=== PATIENT | female | born 1955 | race Caucasian/White ===

== ENCOUNTER 2022-02-19 13:48 | Outpatient (RCR) | payer MEDICARE, BC, SELFPAY | END 2022-08-18 23:59 | disposition home or self-care (01) | LOC: CCIC 13:48 | PROVIDERS: PCP Nurse Practitioner; Visit Provider Nurse Practitioner Family | DX: C50.912 Malignant neoplasm of unspecified site of left female breast (principal); Z17.0 Estrogen receptor positive status [ER+]; Z79.811 Long term (current) use of aromatase inhibitors | CPT/HCPCS: 99212; 99214 ==

== ENCOUNTER 2022-04-22 14:30 | Outpatient (CLI) | payer MEDICARE, BC, SELFPAY ==
--- NOTE | 2022-04-22 14:40 | CRLHL7_ITS ---
For Patients: As a result of the Century Cures Act, medical imaging exams and procedure reports are released immediately into your electronic medical record. You may view this report before your referring provider. If you have questions, please contact your health care provider. BILATERAL SCREENING MAMMOGRAM WITH COMPUTER-AIDED DETECTION AND TOMOSYNTHESIS CLINICAL HISTORY: 67-year-old female. Personal history of LEFT-sided breast cancer. LEFT lumpectomy. TECHNIQUE: CC and MLO views were obtained. This digital study was evaluated with the assistance of computer-aided detection. Digital breast tomosynthesis utilized in interpretation. COMPARISON: 01/06/2019, 02/28/2020, 2020, as well as dedicated views of the LEFT breast 04/25/2021 and 04/28/2021. BREAST COMPOSITION: The breasts are heterogeneously dense, which may obscure small masses FINDINGS: There are postsurgical changes from a LEFT breast lumpectomy with benign coarse calcifications. Within the inferomedial RIGHT breast, there is an enlarging oval-shaped nodule, well circumscribed measuring approximately 5-6 mm. Spot compression views in the CC and true ML projection are recommended as a 1st step. Ultrasound may be required depending on the results of these additional images. IMPRESSION: 1. Postsurgical/posttreatment change LEFT breast. 2. Enlarging fairly well-circumscribed oval-shaped nodule inferomedial RIGHT breast for which additional imaging is recommended. The [facility] will contact the patient for follow-up. BI-RADS Category 0: Incomplete: Need Additional Imaging Evaluation and/or Prior Mammograms for Comparison Dictated by: Micky Falcon MD @04/23/2022 8:22:14 AM PT/Dictated by: Micky Falcon MD @ 04/23/2022 8:22:00 AM (Electronically Signed)
== END 2022-04-22 14:31 | disposition home or self-care (01) ==
PROVIDERS: PCP Nurse Practitioner; Visit Provider Nurse Practitioner
DX: Z12.31 Encounter for screening mammogram for malignant neoplasm of breast (principal); N63.10 Unspecified lump in the right breast, unspecified quadrant
CPT/HCPCS: 77063; 77067

== ENCOUNTER 2022-04-27 09:28 | Outpatient (CLI) | payer MEDICARE, BC, SELFPAY ==
--- NOTE | 2022-04-27 09:45 | CRLHL7_ITS ---
For Patients: As a result of the Cures Act, medical imaging exams and procedure reports are released immediately into your electronic medical record. You may view this report before your referring provider. If you have questions, please contact your health care provider. RIGHT DIAGNOSTIC DIGITAL MAMMOGRAM WITH COMPUTER-AIDED DETECTION AND TOMOSYNTHESIS RIGHT BREAST ULTRASOUND CLINICAL HISTORY: RIGHT breast mass/asymmetry. COMPARISON: 04/22/2022. TECHNIQUE: Digital RIGHT mammogram in two projections with computer-aided detection and tomosynthesis. Real-time ultrasound imaging of RIGHT breast with imaging documentation. BREAST COMPOSITION: The breast is heterogeneously dense, which may obscure small masses. FINDINGS: 3D spot compression CC and 3D true lateral RIGHT breast mammogram images are submitted. Persistent nodular density inferior RIGHT breast without architectural distortion. Targeted RIGHT breast ultrasound performed at 6 o`clock 4 cm from the nipple. In this location, there is a hypoechoic nodule without increased through-transmission measuring 4 x 3 x 5 mm. IMPRESSION: Indeterminate hypoechoic nodule at 6 o`clock of the RIGHT breast, 4 cm from the nipple measuring 4 x 3 x 5 mm. RECOMMENDATIONS: Ultrasound-guided core needle biopsy. Results and recommendations discussed with the patient. A lay language report of this examination will be provided to the patient. BI-RADS Category 4. Suspicious Dictated by Yong Jain MD @ 04/27/2022 10:51:16 AM CRL:[email or web address] RD/Dictated by: Yong Jain MD @ 04/27/2022 10:51:[address]/Dictated by: Yong Jain MD @ 04/27/2022 10:51:00 AM (Electronically Signed)
--- NOTE | 2022-04-27 10:15 | CRLHL7_ITS ---
For Patients: As a result of the Cures Act, medical imaging exams and procedure reports are released immediately into your electronic medical record. You may view this report before your referring provider. If you have questions, please contact your health care provider. PLEASE SEE RIGHT DIAGNOSTIC MAMMOGRAM OF SAME DAY FOR COMBINED REPORT. [email or web address]:[email or web address] RD/Dictated by: Yong Jain MD @ 04/27/2022 10:51:00 AM (Electronically Signed)
== END 2022-04-27 09:29 | disposition home or self-care (01) ==
LOC: MAMMO 09:29
PROVIDERS: PCP Nurse Practitioner; Visit Provider Nurse Practitioner Family
DX: N63.10 Unspecified lump in the right breast, unspecified quadrant (principal); R92.8 Other abnormal and inconclusive findings on diagnostic imaging of breast
CPT/HCPCS: 76642; 77065; G0279

== ENCOUNTER 2022-04-29 09:19 | Outpatient (CLI) | payer MEDICARE, BC, SELFPAY ==
--- NOTE | 2022-04-29 10:15 | CRLHL7_ITS ---
For Patients: As a result of the Century Cures Act, medical imaging exams and procedure reports are released immediately into your electronic medical record. You may view this report before your referring provider. If you have questions, please contact your health care provider. ULTRASOUND-GUIDED RIGHT BREAST BIOPSY AND POST-BIOPSY DIGITAL MAMMOGRAM FOR BIOPSY MARKER PLACEMENT CLINICAL HISTORY: Indeterminate hypoechoic lesion. COMPARISON STUDIES: Mammogram and ultrasound 04/27/2022. TECHNIQUE: Real-time ultrasound with image documentation was used for targeting the breast lesion. Core biopsy specimens were obtained using an automated gun with an 18-gauge biopsy needle. Post-biopsy CC and ML digital mammograms were obtained to document position of the biopsy marker. CONSENT and TIME OUT: The procedure, risks, and alternatives were explained to the patient and a consent was signed. [place] Protocol was followed including pre-procedure verification that relevant information/documentation was available, reviewed and properly matched to the patient; consent accurate and complete; and equipment and supplies available. Time Out was conducted just prior to starting procedure to verify the four required elements: patient identity, correct side/site marked (if applicable), procedure, relevant images/results properly labeled and displayed (if applicable). PROCEDURE: The patient was positioned supine on the ultrasound table. The breast was prepped with ChloraPrep. 8 cc of 1% lidocaine used for local anesthesia. Core samples were obtained. A sterile metal biopsy clip was placed percutaneously to margot the lesion position within the breast. The specimens were placed in 10% formalin and sent to the pathology department. Pressure was held on the biopsy site until all bleeding subsided. The skin incision was closed with Steri-Strips. An ice pack was positioned over the biopsy site. Post-biopsy instructions were reviewed with the patient, and a written copy was given to her. LATERALITY: RIGHT breast. LESION: Hypoechoic solid nodule measuring 4 x 3 x 5 mm at 6 o`clock, 4 cm from the nipple. SUSPICION FOR MALIGNANCY: Low NUMBER OF SAMPLES: 5 BIOPSY CLIP SHAPE: Oval PROXIMITY OF CLIP TO TARGET: Within the lesion. IMPRESSION: Ultrasound-guided RIGHT breast biopsy. When the pathology report is available, an addendum to this report will be made. ACR not applicable. A lay language report of this examination will be provided to the patient. 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 No evidence of atypia or malignancy. This is concordant. Resume routine screening mammography. Dictated by Yong Jain MD @ Apr 29 2022 12:49PM Signed by:?Yong Jain MD @04/29/2022 2:00:10 PM (Electronically Signed)
--- NOTE | 2022-04-29 11:00 | CRLHL7_ITS ---
For Patients: As a result of the Century Cures Act, medical imaging exams and procedure reports are released immediately into your electronic medical record. You may view this report before your referring provider. If you have questions, please contact your health care provider. PLEASE SEE RIGHT BREAST ULTRASOUND-GUIDED BIOPSY OF SAME DAY. CRL:[email or web address] RD/Dictated by: Yong Jain MD @ 04/29/2022 12:49:00 PM (Electronically Signed)
== END 2022-04-29 09:20 | disposition home or self-care (01) ==
PROVIDERS: PCP Nurse Practitioner; Visit Provider Nurse Practitioner Family
DX: N63.10 Unspecified lump in the right breast, unspecified quadrant (principal); R92.8 Other abnormal and inconclusive findings on diagnostic imaging of breast
CPT/HCPCS: 19083; 77065; 88305; A4648; A4649

== ENCOUNTER 2022-10-07 15:13 | Outpatient (CLI) | payer MEDICARE, BC, SELFPAY ==
--- NOTE | 2022-10-07 15:30 | CRLHL7_ITS ---
For Patients: As a result of the Century Cures Act, medical imaging exams and procedure reports are released immediately into your electronic medical record. You may view this report before your referring provider. If you have questions, please contact your health care provider. DXA BONE MINERAL DENSITY STUDY Reason for exam: Osteopenia. Current height (in): 67. Weight (lb): 160. Menopause age: 49. Ethnicity: White. 1. Have you had a previous hip or vertebral fracture? No. 2. Have you had any fractures during your adult life which did not result from significant trauma (e.g., auto accident)? No. 3. Did either of your parents have a hip fracture? No. 4. Do you smoke? No. 5. Have you ever taken Glucocorticoids? No. 6. Do you have rheumatoid arthritis? No. 7. Do you have secondary osteoporosis? No. 8. Do you drink 3 or more alcoholic drinks per day? No. 9. Are you being treated for osteoporosis? No. 10. Have you ever taken any of the following medications: Actonel, Evista, Fosamax, Miacalcin, Reclast, Boniva, Forteo, HRT (i.e., estrogen/hormone therapy), Protelos, Prolia, Vitamin D, Calcium, other ??? please specify. ANSWER: Yes, vitamin D and calcium. 11. Do you have any of the following medical conditions: Anorexia or bulimia, asthma or emphysema, end stage renal disease, hyperparathyroidism, any seizure disorders, cancer, inflammatory bowel diseases, hysterectomy, other ??? please specify. ANSWER: No. 12. What was your maximum height (inches)? 67. 13. Do you perform weight bearing exercise regularly? Yes. 14. Do you regularly consume dairy products? Yes. 15. Do you drink caffeinated beverages? No. If female: 16. At what age did your period start? 12. 17. Are you premenopausal? No. 18. How many full-term pregnancies have you had? 2. 19. Have you ever missed your period for more than 6 months in a row (not including or menopause)? No. TECHNIQUE: Bone mineral density study was performed using the [employer]. FINDINGS: The results of the study expressed as bone mineral density (BMD) are as follows: Lumbar spine L1 to L4: BMD: 0.830 g/cm2. T-score: -2.0. Z-score: 0.0 Neck Left: BMD: 0.663 g/cm2. T-score: -1.7. Z-score: 0.0 Right: BMD: 0.640 g/cm2. T-score: -1.9. Z-score: -0.2 Total Left: BMD: 0.774 g/cm2. T-score: -1.4. Z-score: 0.0. Right: BMD: 0.766 g/cm2. T-score: -1.4. Z-score: 0.0. IMPRESSION: Osteopenia. FRAX 10-year Fracture Risk Major Osteoporotic Fracture: 11% Hip Fracture: 1.7% Reported Risk Factors: [place] () Neck BMD=0.640, BMI= 25.1 Yong Jain M.D. Diagnostic Radiologist [email or web address] [email or web address] nevarez/Dictated by: Yong Jain MD @ 10/08/2022 10:38:00 AM (Electronically Signed)
== END 2022-10-07 15:14 | disposition home or self-care (01) ==
LOC: RAD 15:14
PROVIDERS: PCP Nurse Practitioner; Visit Provider Nurse Practitioner Family
DX: M85.80 Other specified disorders of bone density and structure, unspecified site (principal); C50.919 Malignant neoplasm of unspecified site of unspecified female breast; Z79.811 Long term (current) use of aromatase inhibitors
CPT/HCPCS: 77080

== ENCOUNTER 2022-10-12 14:07 | Outpatient (RCR) | payer MEDICARE, BC, SELFPAY ==
--- NOTE | 2022-10-12 15:14 | ONC.NURNOTE ---
I accompanied patient to her oncology visit. Printed information given to patient re: Zometa and Prolia. Patient was also provided a dental clearance form. At this time she is not interested in bisphosphonate treatment but is open to discuss it again at her next visit. She will have her dentist complete the form so that we have it on file.
== END 2023-04-10 23:59 | disposition home or self-care (01) ==
LOC: CCIC 14:07
PROVIDERS: Visit Provider Internal Medicine Hematology & Oncology
DX: C50.912 Malignant neoplasm of unspecified site of left female breast (principal); Z17.0 Estrogen receptor positive status [ER+]; Z79.811 Long term (current) use of aromatase inhibitors; M85.80 Other specified disorders of bone density and structure, unspecified site
CPT/HCPCS: 99212; 99214

== ENCOUNTER 2023-04-30 13:45 | Outpatient (CLI) | payer MEDICARE, BC, SELFPAY ==
--- NOTE | 2023-04-30 14:00 | CRLHL7_ITS ---
For Patients: As a result of the Century Cures Act, medical imaging exams and procedure reports are released immediately into your electronic medical record. You may view this report before your referring provider. If you have questions, please contact your health care provider. BILATERAL SCREENING MAMMOGRAM WITH COMPUTER-AIDED DETECTION AND TOMOSYNTHESIS TECHNIQUE: CC and MLO views were obtained. These mammographic images have been obtained using full-field digital technique. These mammographic images were interpreted with the benefit of computer-aided detection. Breast Tomosynthesis was used in this interpretation. COMPARISON FILM: 04/22/22, 04/21/21, 02/28/20. FINDINGS: There are scattered areas of fibroglandular density IMPRESSION: There is no radiographic evidence for malignancy. ASSESSMENT: BI-RADS Category 2: Benign RECOMMENDATION: Routine screening mammogram in 1 year. A lay language report of this examination will be provided to the patient. Micky Falcon M.D. Diagnostic/Nuclear Medicine Radiologist [email or web address] SHILOH/Dictated by: Micky Falcon MD @ 05/03/2023 8:24:00 AM (Electronically Signed)
== END 2023-04-30 13:46 | disposition home or self-care (01) ==
LOC: MAMMO 13:47
PROVIDERS: PCP Family Medicine; Visit Provider Internal Medicine Hematology & Oncology
DX: Z12.31 Encounter for screening mammogram for malignant neoplasm of breast (principal)
CPT/HCPCS: 77063; 77067

== ENCOUNTER 2023-10-28 14:45 | Outpatient (RCR) | payer MEDICARE, BC, SELFPAY | END 2023-11-01 23:59 | disposition home or self-care (01) | LOC: CCIC 14:45 | PROVIDERS: PCP Family Medicine; Visit Provider Physician Assistant | DX: C50.912 Malignant neoplasm of unspecified site of left female breast (principal); Z17.0 Estrogen receptor positive status [ER+]; Z79.811 Long term (current) use of aromatase inhibitors; M85.80 Other specified disorders of bone density and structure, unspecified site | CPT/HCPCS: 99212; 99213; 99214; G0463 ==

== ENCOUNTER 2024-05-01 12:47 | Outpatient (CLI) | payer MEDICARE, BC, SELFPAY ==
--- OUTSIDE RECORDS SUMMARY | 2024-05-01 12:50 | XMS_ITS ---
Author Organization [facility] Address [address] [place] [address] Care Team Providers Care Plane Tableman Name Role Phone Unavailable Unavailable Unavailable Surgery Details Not on file Complications Check Surgery Details section. Procedure Estimated Blood Loss Check Surgery Details section. Procedure Findings Check Surgery Details section. Procedure Specimens Taken Check Surgery Details section.
--- OUTSIDE RECORDS SUMMARY | 2024-05-01 12:50 | XMS_ITS | Referral Summary ---
Author Organization [facility] Address [address] [place] [address] Care Team Providers Care Telecommunications Administrator Name Role Phone Dirk Pathak M.D. Primary Care Provider [phone] Source Comments Patient records contain information from all sites at [facility]. For routine questions regarding patient records, call [phone] during business hours, M-F 8:00 AM - 5:00 PM Central Time. Record requests for emergency care only can be directed to [phone] at any time.[facility] Encounters Date Type Department Care Team Description 04/21/2024 Orders Only Department of Internal Medicine in [place], [place] [address] [place] [id number] Aruna Vizcarra, HELLEN, C.N.P., D.N.P., M.S.N. Obstructive Sleep Apnea Adult (Primary Dx) 03/16/2024 Refill Department of Family Medicine, [facility], in [place], [place] [address] [place] [phone] Dirk Pathak M.D. Med Refill from Last 3 Months Allergies Active Allergy Reactions Criticality Noted Date Comments Latex Rash 10/10/2018 Tetracycline Rash 12/24/2009 Medications * This document contains information received from the source organization and may not represent a complete record from that organization. CLOBETASOL PROPIONATE (CLOBETASOL TOP) Apply 1 application topically 2 (two) times a day as needed. 2 Active desonide (DESOWEN) 0.05 % lotion Apply 1 application topically 2 (two) times a day as needed for irritation or itching. 4 Active FLAXSEED ORAL Take by mouth daily. 0 Active FLUOCINOLONE ACETONIDE (FLUOCINOLONE TOP) fluocinolone 0.01% topical oil See Instructions, 1 jyotsna at bedtime- wear shower cap to bed. May use for 2 weeks straight then PRN., 118 mL 4 Active MULTIVITAMIN WITH MINERALS ORAL Take 1 capsule by mouth daily. 3 Active calcium carbonate-vitam in D3 1,500 mg (600 mg calcium)-10 mcg (400 Unit) per tablet Take 1 tablet by mouth daily. Active acetaminophen (TYLENOL) 325 mg tablet Take 650 mg by mouth. 1 Active ibuprofen (ADVIL,MOTRIN) 600 mg tablet Take 600 mg by mouth. 1 Active anastrozole (ARIMIDEX) 1 mg tablet Take 1 mg by mouth daily. 2 Active atorvastatin (Lipitor) 20 mg tablet Take 1 tablet by mouth once daily 90 tablet 3 4 Active PARoxetine (PaxiL) 10 mg tabletIndicatio ns:Anxiety Take 1/2 (one-half) tablet by mouth once daily 45 tablet 3 4 Active Active Problems Problem Noted Date Diagnosed Date Cancer Breast Personal History 06/18/2021 Cancer Staging:Pathologic stage from 06/02/2021:Stage IA(pT1b, pN0(sn), cM0, G1, ER+, MS+, HER2-) - Unsigned Osteopenia 09/26/2020 Overview (09/26/2020): September 25, 2020 BONE DENSITY EXAM IMPRESSION: Osteopenia on Neck Right Total Hip: T-score = -1.3 Femur Neck: BMD = T-score = -1.6 Obstructive Sleep Apnea Adult 12/02/2018 Overview (04/29/2020): Mild to moderately severe position dependent obstructive sleep apnea by polysomnogram on November 06, 2018, has been utilizing CPAP intervention since that time. 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 Female Left 06/23/2021 10/12/2023 Immunizations Name Administration Dates Next Due HepA Adult 11/22/2001,05/10/2001 HepB (discontinued) adolesce nt/high risk 11/22/2001,05/10/2001,06/13/2000 Influenza TIV (IM) 03/23/2013,04/04/2010, 008 Influenza high dose QV(65 ye ars or older) (PF) 04/02/2023,04/29/2020 Influenza, Seasonal, Injectable 03/23/20 13,03/14/2012,04/04/2010,2007,04/09/2007 Influenza, Unspecified 04/18/2015,2011,03/31/2011,2009 PCV20 02/16/2022 PPSV23 04/29/2020 SARS-COV-2 (COVID-19) - MODE RNA (12 YEARS AND OLDER) Fall Seasonal 04/02/2023 Td (Adult), adsorbed 10/03/2007 Tdap 09/25/2014 influenza vaccine quad (FLUZONE/FLUARIX) (6 months and older)(PF) 03/20/2019,03/31/2018,03/19/2017,2015 typhoid vaccine, parenteral (discontinued) 05/10/2001 Social History Tobacco Use Types Packs/Day Years Used Date Smoking Tobacco: Never Smokeless Tobacco: Never Tobacco Cessation:Counseling Given: Not Answered Alcohol Use Standard Drinks/Week Comments No 0 (1 standard drink = 0.6 oz pur e alcohol) Humiliation, Afraid, Rape, and Kick questionnair e Answer Date Recorded Within the last year, have y ou been afraid of your partner or ex-partner? No 02/16/2022 Within the last year, have y ou been humiliated or emotionally abused in other ways by your partner or ex-partner? No Within the last year, have y ou been kicked, hit, slapped, or otherwise physically hurt by your partner or ex-partner? No 02/16/2022 Within the last year, have y ou been raped or forced to have any kind of sexual activity by your partner or ex-partner? No 02/16/2022 Social Connection and Isolat ion Panel [NHANES] Answer Date Recorded In a typical week, how many times do you talk on the phone with family, friends, or neighbors? More than three times a week 02/16/2022 How often do you get togethe r with friends or relatives? Once a week 02/16/2022 How often do you attend chur or mandaeism services? More than 4 times per year 02/16/2022 Do you belong to any clubs o r organizations such as episcopal groups, unions, fraternal or athletic groups, or school groups? No 02/16/2022 How often do you attend meet ings of the clubs or organizations you belong to? Never 02/16/2022 Are you , , di vorced, , never , or living with a partner? 02/16/2022 AUDIT-C Answer Date Recorded Q1: How often do you have a drink containing alc ohol? Monthly or less 02/16/2022 Q2: How many drinks containi ng alcohol do you have on a typical day when you are drinking? 1 or 2 02/16/2022 Q3: How often do you have si x or more drinks on one occasion? Never 02/16/2022 Overall Financial Resource Strain (CARDIA) Answe r Date Recorded How hard is it for you to pa y for the very basics like food, housing, medical care, and heating? Not hard at all 04/08/2023 PHQ-2 Answer Date Recorded PHQ-2 Score 0 10/12/2023 [facility] - Occupational Stress Questionnaire Answer Date Recorded Do you feel stress - tense, restless, nervous, or anxious, or unable to sleep at night because your mind is troubled all the time - these days? Only a little 02/16/2022 Exercise Vital Sign Answer Date Recorde d On average, how many days pe r week do you engage in moderate to strenuous exercise (like a brisk walk)? 4 days 04/08/2023 On average, how many minutes do you engage in exercise at this level? 30 min 04/08/2023 Hunger Vital Sign Answer Date Recorded Within the past 12 months, y ou worried that your food would run out before you got the money to buy more. Never true 04/08/20 23 Within the past 12 months, t he food you bought just didn't last and you didn't have money to get more. Never true 04/08/2023 PRAPARE - Transportation Answer Date Re corded In the past 12 months, has l ack of transportation kept you from medical appointments or from getting medications? No 07/2022 In the past 12 months, has l ack of transportation kept you from meetings, work, or from getting things needed for daily living? No 04/08/2023 Depression Answer Date Recor ded PHQ-9 Total Score (max 27) 2 04/08 Nutrition Answer Date Recorded On average, how many serving s of fruits and vegetables do you eat per day (serving size is equal to 1 cup or approximately the size of a tennis ball)? 3-5 04/08/2023 Dental Answer Date Recorded Dental: Regular Dentist Yes 05/06/20 Employment Answer Date Recorded Employment status Retired 04/08/2023 Housing Stability Answer Date Recorded What is your living situation today? [facility] to live 04/08/2023 Education Answer Date Recorded What is the highest level of school you have completed or the highest degree you have received? Bachelor's degree (e.g., BA, AB, BS) 02/17/2019 Comments No Sex and Gender Information Value Date Recorded Sex Assigned at Female 04/19/2018 7:41 PM RN URGENT CARE Legal Sex Female 10:56 AM RN URGENT CARE Gender Identity Female 04/19/2018 7:41 PM RN URGENT CARE Sexual Orientation Straight 04/19/2018 7: 41 PM RN URGENT CARE Last Filed Vital Signs Vital Sign Reading Time Taken Comments Blood Pressure 138/82 10/12/2023 7:42 AM CDT Pulse 94 10/12/2023 7:42 AM CDT Temperature 36.1 C (97 F) 10/12/2023 7:42 AM CDT Respiratory Rate 16 10/12/2023 7:42 AM CDT Oxygen Saturation 98% 02/20/2020 11: 21 AM CDT Inhaled Oxygen Concentration - - Weight 72.5 kg (159 lb 13.3 oz) 10/12/2023 7:42 AM CDT Height 171 cm (5' 7.32) 10/12/2023 7:42 AM CDT Body Mass Index 24.79 10/12/2023 7:42 AM CDT Plan of Treatment Not on file Procedures Procedure Name Priority Date/Time Associated Diagnosis Comments HEMOGLOBIN A1C, B Routine 04/05/2023 8:4 0 AM CDT Screening Test Laboratory LIPID PANEL, S Routine 04/05/2023 8:40 AM CDT Hyperlipidemia OUTSIDE MG MAMMOGRAM Routine 04/28/2021 10:45 AM RN URGENT CARE PATHOLOGY STICK FEEDER CYTOLOGY Routine 04/06/2017 12:00 AM CDT from Last 3 Months or Most Recently Relevant to Health Maintenance Results * (ABNORMAL) Lipid Panel (04/05/2023 8:40 AM CDT) Triglycerides 98 mg/dL 04/05/2023 12:46 PM CDT [facility] Comment: ----REFERENCE VALUE---- Normal: <150 mg/dL Borderline High: 150-199 mg/dL High: 200-499 mg/dL Very High: > or =500 mg/dL Cholesterol, Total 145 mg/dL 2022 12:46 PM CDT [facility] Comment: ----REFERENCE VALUE---- Desirable: < 200 mg/dL Borderline High: 200 - 239 mg/dL High: > or = 240 mg/dL Cholesterol, LDL, Calculated 85 mg/dL 04/05/2023 12:46 PM CDT [facility] Comment: ----REFERENCE VALUE---- Desirable: <100 mg/dL Above Desirable: 100-129 mg/dL Borderline High: 130-159 mg/dL High: 160-189 mg/dL Very High: >=190 mg/dL ----ADDITIONAL INFORMATION---- LDL cholesterol calculated using the Cavazos/NIH equation. Cholesterol, HDL 42(L) >=50 mg/dL 04/05/20 12:46 PM CDT [facility] Cholesterol, Non-HDL, Calculated 103 mg/dL 04/05/2023 12:46 PM CDT [facility] Comment: ----REFERENCE VALUE---- Desirable: <130 mg/dL Above Desirable: 130-159 mg/dL Borderline High: 160-189 mg/dL High: 190-219 mg/dL Very High: > or =220 mg/dL Fasting (8 HR or more) Yes 04/05/2023 11:11 AM CDT [facility] Blood (Blood, Venous) 04/05/2023 8:40 AM CDT 04/05/2023 11:11 AM CDT us Shelli Mcqueen P.A.-C. LAB BLOOD ADD-ON Final Res ult Performing Organization Address [facility] Co de Phone Number [facility] [address] [place] [address], [facility] in [place] [address], [place] [address] * (ABNORMAL) Hemoglobin A1c (04/05/2023 8:40 AM CDT) Hemoglobin A1c, B 5.8(H) 4.2 - 5.6 % 04/05/2023 11:57 AM CDT [facility] Comment: Hemoglobin A1c values of 5.7-6.4 percent indicate an increased risk for developing diabetes mellitus. In diabetic patients, HbA1c goals should be discussed with healthcare provider. Blood (Blood, Venous) 04/05/2023 8:40 AM CDT 04/05/2023 11:08 AM CDT us Dirk Pathak M.D. LAB BLOOD ADD-ON Final Resul t Performing Organization Address [facility]/ZIP Co de Phone Number [facility] [address] [place] [address], [facility] [place] [address], [place] [address] * DIAGNOSTIC MAMMO, LEFT, W/CAD-Outside Mammogram (04/28/2021 10:45 AM RN URGENT CARE) Narrative IIMS - 05/06/2021 5:48 PM RN URGENT CARE This order has been created and auto-finalized to support the import of outside images. If available, original interpretation can be found on the Media Tab in Chart Review, in Document Viewer, or as an image in QREADS. If a re-interpretation or overread is required please follow defined workflow. us Provider Not In System IMG BI PROCEDURES Final R esult IIVT NA * Pathology STICK FEEDER Cytology (04/06/2017 12:00 AM CDT) 04/06/2017 Narrative [facility] - 04/09/2017 10:52 AM CDT [facility] in [address] [place] [address] Patient Name: JYOTI RINCON Collected: 04/06/2017 Address: [facility]/State/Zip: [address] [place] [id number] Received: Reported: 04/07/2017 04/09/2017 Soc. Sec. #: /Age/Sex 1955 (Age: 61) F Physician(s): LAMBERTO SANDERSON MD Copy To: [facility] [id number] [address] [place] [id number] CYTOPATHOLOGY STICK FEEDER REPORT FINAL CYTOLOGIC DIAGNOSIS Pap Smear - ThinPrep with HPV: NEGATIVE FOR INTRAEPITHELIAL LESION OR MALIGNANCY PRESENCE OR ABSENCE OF ENDOCERVICAL COMPONENT CANNOT BE DETERMINED DUE TO ATROPHY. SATISFACTORY SPECIMEN FOR EVALUATION. Electronically Signed Out By eh/04/09/[address](ASCP) The Pap test is a screening procedure and, as such, is subject to both false positive and false negative results as evidenced by published data. It is not a diagnostic test and results should be interpreted in the context of the patient's history and other clinical findings. Obtaining periodic Pap tests may help to minimize the consequences of any false negatives that may occur. Procedures/Addenda: HUMAN PAPILLOMA VIRUS ADDENDUM Date Ordered: 04/07/2017 Status: Signed Out Date Complete: 04/09/2017 By: AJ Wawrzynaik CT(ASCP) Date Reported: 04/09/2017 INTERPRETATION: Test: Aptima High Risk HPV Result: NEGATIVE FOR HIGH RISK HPV Specimen Description: ThinPrep Pap Test PreservCyt Solution HPV by Sock Knitter-Mediated Amplification (TMA) for E6/E7 viral messenger RNA (mRNA) is an in-vitro diagnostic test for the detection of 14 high-risk Human Papillomavirus (HPV) types (16, 18, 31, 33, 35, 39, 45, 51, 52, 56, 58, 59, 66, and 68) in cervical specimen. Intended for co-testing or reflex testing of ASC-US Pap smears. Interpretation for patients with ASC-US cytology: Low likelihood of underlying high-grade CIN2-3 or cancer; results are not intended to prevent women from proceeding to colposcopy. Interpretation for patients with NILM cytology who are over 30 years old: Very low likelihood of underlying high-grade ANKIT or cancer; results do not preclude future HPV infection or cytologic abnormalities with underlying CIN2-3 or cancer. SPECIMEN(S) RECEIVED: Pap Smear - ThinPrep with HPV CLINICAL HISTORY: Menstrual History: Postmenopausal Hormonal History: No hormonal therapy Other Clinical Conditions: HPV TYPING REQUESTED Merle Dykes M.D. 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 [address] [place] [phone] PCP - General 06/11/22 [facility] 04/08/23
--- OUTSIDE RECORDS SUMMARY | 2024-05-01 12:50 | XMS_ITS ---
Author Organization [facility] Address [address] [place] [address] Care Team Providers Care Director Of Culture Name Role Phone Dirk Pathak M.D. Primary Care Provider Active Problems * This document contains information received from the source organization and may not represent a complete record from that organization. Problem Noted Date Diagnosed Date Cancer Breast Personal History 06/18/2021 Cancer Staging:Pathologic stage from 06/02/2021:Stage IA(pT1b, pN0(sn), cM0, G1, ER+, NC+, HER2-) - Unsigned Osteopenia 09/26/2020 Overview (09/26/2020): [...] time. Hyperlipidemia 04/20/2018 Anxiety 04/20/2018 Psoriasis 04/20/2018 Current Oncology Plans No current plan information found. Past Plans No past plan information found. Radiation Treatments * Plan Last Treated On Elapsed Days Fractions Treated Prescribed Fraction Dose Prescribed Total Dose [id number] 08/01/2021 4 5 of 5 520 cGy 2,600 cGy Reference Point Last Treated On Elapsed Days Session Dose Total Dose [id number] 08/01/2021 4 520 cGy 2,600 cGy Resolved Problems Problem Noted Date Diagnosed Date Resolved Date Malignant Neoplasm Of Breast Upper Inner Quadrant Female Left 06/23/2021 10/12/2023
--- OUTSIDE RECORDS SUMMARY | 2024-05-01 12:50 | XMS_ITS | Clinical Summary ---
Author Organization [facility] Address [address] [place] [address] Care Team Providers Care Meat Manager Name Role Phone Dirk Pathak M.D. Primary Care Provider Source Comments Patient records contain information from all sites at [facility]. For routine questions regarding patient records, call [phone] during business hours, M-F 8:00 AM - 5:00 PM Central Time. Record requests for emergency care only can be directed to [phone] at any time.[facility] Allergies Active Allergy Reactions Criticality Noted Date [...] from 06/02/2021:Stage IA(pT1b, pN0(sn), cM0, G1, ER+, MA+, HER2-) - Unsigned Osteopenia 09/26/2020 Overview (09/26/2020): [...] Upper Inner Quadrant Female Left 06/23/2021 10/12/2023 Encounters Date Type Department Care Team Description 04/21/2024 Orders Only Department of Internal Medicine in [place], [place] [address] [place] [phone] Aruna Vizcarra APRN, C.N.P., D.N.P., M.S.N. Obstructive Sleep Apnea Adult (Primary Dx) 03/16/2024 Refill Department of Family Medicine, [facility], in [place], [place] [address] [place] [address] Dirk Pathak M.D. Med Refill from Last 3 Months Immunizations Name Administration Dates Next Due HepA [...] older)(PF) 03/20/2019,03/31/2018,03/19/2017,2015 typhoid vaccine, parenteral (discontinued) 05/10/2001 Family History Medical History Relation Name Comments Crohn's disease Brother 1 sima Skin cancer Brother 1 sima Anxiety disorder Brother 2 jefff Hyperlipidemia Brother 2 jefff Psoriasis Brother 2 jefff Eating disorder Daughter Dahlia pre-cancerous skin cells Daughter Dahlia Alcohol abuse Father Taqueria Anxiety disorder Father Taqueria Parkinsons disease Father Taqueria Diabetes Maternal Grandmother Diabetes Mother Polly Gout Mother Polly Hyperlipidemia Mother Polly Hypertension Mother Polly Breast cancer Sister 1 alejandra Gout Sister 1 alejandra Hyperlipidemia Sister 1 alejandra Hypertension Sister 1 alejandra Skin cancer Sister 1 alejandra Breast cancer Sister 2 rosemarie Hyperlipidemia Sister 2 rosemarie Schizophrenia Sister 2 rosemarie Testicular cancer Son Cuauhtemoc Relation Name Status Comments Brother 1 sima Alive Brother 2 jefff Alive Daughter Dahlia Alive Father Taqueria (Age 88) Complicati ons of pneumonia Maternal Grandfather Maternal Grandmother Mother Polly (Age 76) Paternal Grandfather Paternal Grandmother Sister 1 alejandra Alive Sister 2 rosemarie Alive Son Cuauhtemoc Alive Social History Tobacco Use Types Packs/Day Years [...] week 02/16/2022 How often do you attend [facility] or restoration services? More than 4 times per year 02/16/2022 Do you belong to any clubs o r organizations such as presybeterian groups, unions, fraternal or athletic groups, or [...] Answer Date Recorded PHQ-2 Score 0 10/12/2023 [facility] - Occupational Stress [...] Date Recorded Dental: Regular Dentist Yes 05/06/20 21 Employment Answer Date Recorded Employment status Retired 04/08/2023 Housing Stability Answer Date Recorded What is your living situation today? I have a [facility] place to live 04/08/2023 Education Answer Date Recorded What is the highest level of school you have completed or the highest degree you have received? Bachelor's degree (e.g., BA, AB, BS) 02/17/2019 Comments No Sex and Gender Information Value Date Recorded Sex Assigned at Female 04/19/2018 7:41 PM IN SHOP SERVICE TECHNICIAN Legal Sex Female 10:56 AM IN SHOP SERVICE TECHNICIAN Gender Identity Female 04/19/2018 7:41 PM IN SHOP SERVICE TECHNICIAN Sexual Orientation Straight 04/19/2018 7: 41 PM IN SHOP SERVICE TECHNICIAN Last Filed Vital Signs Vital Sign Reading [...] 10/12/2023 7:42 AM CDT Plan of Treatment Health Maintenance Due Date Last Done Comments CT Colonography 1955 Cologuard 1955 FIT 1955 Hepatitis C Screening 1955 Zoster Vaccines (1 of 2) 1973 RSV vaccine - (32-36 weeks) or 60+ years (1 - Risk 60-74 years 1-dose series) 2014 Mammogram 04/22/2023 04/22/2022 (Perf ormed elsewhere), 04/28/2021, 04/25/2021, Additional history exists COVID-19 Vaccine ( season) 2024 04/02/2023, 04/07/2021, 08/16/2020, Additional history exists Influenza Vaccine (#1) 2024 , 04/29/2020, 03/20/2019, Additional history exists Visit: Medicare Annual Wellness 04/09/2024 04/08/2023 DTaP,Tdap,and Td Vaccines (2 - Td or Tdap) 09/25/2024 09/25/2014, 10/03/2007 Visit: Annual, age 65+ (or Medicare and <65) 10/11/2024 10/12/2023 Fasting Glucose for Diabetes Screening 04/05/2026 04/05/2023, 04/05/2023, 02/16/2022, Additional history exists Lipid (Cholesterol) Screening 04/05/2028 04/05/2023, 02/16/2022, 04/25/2020, Additional history exists Colonoscopy 10/17/2028 10/17/2018, 10/05, 03/29/2007 Colorectal Cancer Screening 10/17/2028 Hepatitis A Vaccines Completed 11/22/2001, 05/10/20 Cervical/Vaginal Cancer Screening Discontinued 04/06/2017, 09/25/2014, 09/02/2011, Additional history exists Bone Density Scan (Osteoporosis Screen) Discontinued 09/26/2020 Pneumococcal vaccine (65+ years) Completed 02/16/2022, 04/29/2020 Depression Screening (Annual PHQ-2) Completed 10/12/2023, 10/12/2023 Fall Risk Screen (Annual) Completed 10/12/2023 HPV Vaccines Aged Out No longer eligi ble based on patient's age to complete this topic IPV Vaccines Aged Out No longer eligi ble based on patient's age to complete this topic Procedures Procedure Name Priority Date/Time Associated Diagnosis Comments HEMOGLOBIN A1C, B Routine 04/05/2023 8:4 0 AM CDT Screening Test Laboratory LIPID PANEL, S Routine 04/05/2023 8:40 AM CDT Hyperlipidemia OUTSIDE MG MAMMOGRAM Routine 04/28/2021 10:45 AM IN SHOP SERVICE TECHNICIAN PATHOLOGY [facility] CYTOLOGY Routine 04/06/2017 12:00 AM CDT from [...] P.A.-C. LAB BLOOD ADD-ON Final Res ult [facility] [address] [place] [address], [facility] in [place] [address] [place] [address] * (ABNORMAL) Hemoglobin A1c (04/05/2023 8:40 AM CDT) Hemoglobin A1c, B 5.8(H) 4.2 - 5.6 % 04/05/2023 11:57 AM CDT OW Comment: Hemoglobin A1c values of 5.7-6.4 percent indicate an increased risk for developing diabetes mellitus. In diabetic patients, HbA1c goals should be discussed with healthcare provider. Blood (Blood, Venous) 04/05/2023 8:40 AM CDT 04/05/2023 11:08 AM CDT us Dirk Pathak M.D. LAB BLOOD ADD-ON Final Resul t Performing Organization Address City/[facility]/ZIP Co de Phone Number [facility] [address] [place] [address], [facility] [address] [facility] in [place] [address] [place] [address] * DIAGNOSTIC MAMMO, LEFT, W/CAD-Outside Mammogram (04/28/2021 10:45 AM IN SHOP SERVICE TECHNICIAN) Narrative IIMS - 05/06/2021 5:48 PM IN SHOP SERVICE TECHNICIAN This order has been created and auto-finalized to support the import of outside images. If available, original interpretation can be found on the Media Tab in Chart Review, in Document Viewer, or as an image in QREADS. If a re-interpretation or overread is required please follow defined workflow. us Provider Not In System IMG BI PROCEDURES Final R esult Performing Organization Address City/[facility]/ZIP Co de Phone Number [facility] NA * Pathology [facility] Cytology (04/06/2017 12:00 AM CDT) 04/06/2017 Narrative M LAB - 04/09/2017 10:[address] [facility] in [address] [place] [address] Patient Name: JYOTI RINCON Collected: 04/06/2017 Address: City/State/Zip: [address] [place] [id number] Received: Reported: 04/07/2017 04/09/2017 Soc. Sec. #: /Age/Sex 1955 (Age: 61) F Physician(s): LAMBERTO SANDERSON MD Copy To: [facility] [id number] [address] [place] [address] CYTOPATHOLOGY [facility] REPORT FINAL CYTOLOGIC DIAGNOSIS Pap Smear - ThinPrep with HPV: NEGATIVE FOR INTRAEPITHELIAL LESION OR MALIGNANCY PRESENCE OR ABSENCE OF ENDOCERVICAL COMPONENT CANNOT BE DETERMINED DUE TO ATROPHY. SATISFACTORY SPECIMEN FOR EVALUATION. Electronically Signed Out By [facility]/04/09/2017 [facility](ASCP) The Pap test is a screening procedure [...] Status: Signed Out Date Complete: 04/09/2017 By: OSMAN CHAPMAN(ASCP) Date Reported: 04/09/2017 INTERPRETATION: Test: Aptima High Risk HPV Result: NEGATIVE FOR HIGH RISK HPV Specimen Description: ThinPrep Pap Test PreservCyt Solution HPV by Tape Cutter-Mediated Amplification (TMA) for E6/E7 viral messenger RNA [...] LAB PAP COPATH O RDERABLES Final Result [facility] from Last 3 Months or Most Recently Relevant to Health Maintenance Insurance [facility]ICARE [facility] Advance Directives For more information, please contact: [phone] Documents on File Type Date Recorded Patient Neon Light Installer Expl anation Advance Directives 10/01/2017 4:51 PM Heal th Care Directive Healthcare Agents on File Name Relationship Healthcare Agent Relationship Communication Taqueria Sergey Health Care Agent Dahlia [place] First Alternat e Health Care Agent Cuauhtemoc Sergey Second Alternate Health Care Agent Care Teams Meat Manager Relationship Specialty Start Date End Date Dirk Pathak M.D. [address] [place] [address] LISETTE Alvarado [phone] PCP - General 06/11/22 [facility] 04/08/23
--- OUTSIDE RECORDS SUMMARY | 2024-05-01 12:50 | XMS_ITS | Encounter Summary ---
Author Organization [facility] Address [address] [place] [address] Care Team Providers Care Food Chemist Name Role Phone Dirk Pathak M.D. Primary Care Provider [phone] Reason for Visit * Reason Comments Med Refill Encounter Details Date Type Department Care Team (Late st Contact Info) Description 03/16/2024 Refill Department of Family Medicine, [facility], in [place], [place] [address] [place] [phone] Dirk Pathka M.D. [address] [place] [phone] Med Refill Social History Tobacco Use Types Packs/Day Years Used Date Smoking Tobacco: Never Smokeless Tobacco: Never Alcohol Use Standard Drinks/Week Comments No 0 [...] week 02/16/2022 How often do you attend [facility] or holiness services? More than 4 times per year 02/16/2022 Do you belong to any clubs o r organizations such as protestant groups, unions, fraternal or athletic groups, or [...] Answer Date Recorded PHQ-2 Score 0 10/12/2023 [facility] - Occupational [...] money to buy more. Never true 04/08/20 Within the past 12 months, t he [...] your living situation today? I have a [facility] place to live 04/08/2023 Education Answer Date Recorded What is the highest level of school you have completed or the highest degree you have received? Bachelor's degree (e.g., BA, AB, BS) 02/17/2019 Comments No Sex and Gender Information Value Date Recorded Sex Assigned at Female 04/19/2018 7:41 PM BLOOD DONOR RECRUITER Legal Sex Female 10:56 AM BLOOD DONOR RECRUITER Gender Identity Female 04/19/2018 7:41 PM BLOOD DONOR RECRUITER Sexual Orientation Straight 04/19/2018 7: 41 PM BLOOD DONOR RECRUITER documented as of this encounter Plan of Treatment Not on file documented as of this encounter Visit Diagnoses Diagnosis Anxiety documented in this encounter Additional Health Concerns Assessment Noted Time PHQ-9 Depression Total Score: 2 04/08/20 7:55 AM CDT documented as of this encounter Care Teams Food Chemist Relationship Specialty Start Date End Date Dirk Pathak M.D. [address] [place] [phone] PCP - General 06/11/22 [facility] 04/08/23 documented as of this encounter
--- OUTSIDE RECORDS SUMMARY | 2024-05-01 12:50 | XMS_ITS | Encounter Summary ---
Author Organization [facility] Address [address] [place] [address] Care Team Providers Care Law Instructor Name Role Phone Dirk Pathak M.D. Primary Care Provider Encounter Details Date Type Department Care Team (Late st Contact Info) Description 04/21/2024 Orders Only Department of Internal Medicine in [place], [place] [address] [phone] Aruna Vizcarra APRN, C.N.P., D.N.P., M.S.N. [address] [phone] Obstructive Sleep Apnea Adult (Primary Dx) Social History Tobacco Use Types Packs/Day Years [...] How often do you attend [facility] or adventist services? More than 4 times per year 02/16/2022 Do you belong to any clubs o r organizations such as hindu groups, unions, fraternal or athletic groups, or [...] Answer Date Recorded PHQ-2 Score 0 10/12/2023 [facility] - Occupational Stress [...] your living situation today? I have a [facility] place to live 04/08/2023 Education Answer Date Recorded What is the highest level of school you have completed or the highest degree you have received? Bachelor's degree (e.g., BA, AB, BS) 02/17/2019 Comments No Sex and Gender Information Value Date Recorded Sex Assigned at Female 04/19/2018 7:41 PM WRAPPING MACHINE TENDER Legal Sex Female 10:56 AM WRAPPING MACHINE TENDER Gender Identity Female 04/19/2018 7:41 PM WRAPPING MACHINE TENDER Sexual Orientation Straight 04/19/2018 7: 41 PM WRAPPING MACHINE TENDER documented as of this encounter Plan of Treatment Scheduled Orders Name Type Priority Associated Diagnoses Orde r Schedule PUL Home Overnight Oximetry PFT Routine Obstructive Sleep Apnea Adult Expected: 04/21/2024, Expires: 07/22/2025 documented as of this encounter Visit Diagnoses Diagnosis Obstructive Sleep Apnea Adult- Primary documented in this encounter Additional Health Concerns Assessment Noted Time PHQ-9 Depression Total Score: 2 04/08/20 23 7:55 AM CDT documented as of this encounter Care Teams Law Instructor Relationship Specialty Start Date End Date Dirk Pathak M.D. [address] [place] [address] [place] [phone] PCP - General 06/11/22 [facility] 04/08/23 documented as of this encounter
--- NOTE | 2024-05-01 13:00 | CRLHL7_ITS ---
For Patients: As a result of the Century Cures Act, medical imaging exams and procedure reports are released immediately into your electronic medical record. You may view this report before your referring provider. If you have questions, please contact your health care provider. BILATERAL SCREENING MAMMOGRAM WITH COMPUTER-AIDED DETECTION AND TOMOSYNTHESIS TECHNIQUE: CC and MLO views were obtained. These mammographic images have been obtained using full-field digital technique. These mammographic images were interpreted with the benefit of computer-aided detection. Breast Tomosynthesis was used in this interpretation. COMPARISON FILM: 04/30/23, 04/22/22, left diag 04/15/21. FINDINGS: There are scattered areas of fibroglandular density. IMPRESSION: There is no radiographic evidence for malignancy. ASSESSMENT: BI-RADS Category 2: Benign RECOMMENDATION: Routine screening mammogram in 1 year. A lay language report of this examination will be provided to the patient. Yong Jain M.D. Diagnostic Radiologist [email or web address] SP/Dictated by: Yong Jain MD @ 05/02/2024 8:47:00 AM (Electronically Signed)
== END 2024-05-01 12:48 | disposition home or self-care (01) ==
LOC: MAMMO 12:48
PROVIDERS: PCP Family Medicine; Visit Provider Internal Medicine Hematology & Oncology
DX: Z12.31 Encounter for screening mammogram for malignant neoplasm of breast (principal)
CPT/HCPCS: 77063; 77067

== ENCOUNTER 2024-05-01 13:13 | Outpatient (RCR) | payer MEDICARE, BC, SELFPAY | END 2024-10-28 23:59 | disposition home or self-care (01) | LOC: CCIC 13:13 | PROVIDERS: PCP Family Medicine; Visit Provider Internal Medicine Hematology & Oncology | DX: C50.912 Malignant neoplasm of unspecified site of left female breast (principal); Z17.0 Estrogen receptor positive status [ER+]; M85.80 Other specified disorders of bone density and structure, unspecified site; Z79.811 Long term (current) use of aromatase inhibitors | CPT/HCPCS: 99214; G0463 ==

== ENCOUNTER 2024-10-26 13:16 | Outpatient (CLI) | payer MEDICARE, BC, SELFPAY ==
--- NOTE | 2024-10-26 13:30 | CRLHL7_ITS ---
For Patients: As a result of the Century Cures Act, medical imaging exams and procedure reports are released immediately into your electronic medical record. You may view this report before your referring provider. If you have questions, please contact your health care provider. DXA BONE MINERAL DENSITY STUDY Current height (in): 67. Weight (lb): 160. Menopause age: 49. Ethnicity: White. 1. Have you had a previous hip or vertebral fracture? No. 2. Have you had any fractures during your adult life which did not result from significant trauma (e.g., auto accident)? No. 3. Did either of your parents have a hip fracture? No. 4. Do you smoke? No. 5. Have you ever taken Glucocorticoids? No. 6. Do you have rheumatoid arthritis? No. 7. Do you have secondary osteoporosis? No. 8. Do you drink 3 or more alcoholic drinks per day? No. 9. Are you being treated for osteoporosis? No. 10. Have you ever taken any of the following medications: Actonel, Evista, Fosamax, Miacalcin, Reclast, Boniva, Forteo, HRT (i.e. estrogen/hormone therapy), Protelos, Prolia, Vitamin D, Calcium, other ??? please specify. ANSWER: Yes, Vitamin D, HRT, and Calcium. 11. Do you have any of the following medical conditions: Anorexia or bulimia, asthma or emphysema, end stage renal disease, hyperparathyroidism, any seizure disorders, cancer, inflammatory bowel diseases, hysterectomy, other ??? please specify. ANSWER: No. 12. What was your maximum height (inches)? 67. 13. Do you perform weight bearing exercise regularly? Yes. 14. Do you regularly consume dairy products? Yes. 15. Do you drink caffeinated beverages? No. 16. At what age did your period start? 12. 17. Are you premenopausal? No. 18. How many full term pregnancies have you had? 2. 19. Have you ever missed your period for more than 6 months in a row (not including or menopause)? No. TECHNIQUE: Bone mineral density study was performed using the [employer]. FINDINGS: The results of the study expressed as bone mineral density (BMD) are as follows: Lumbar spine L1 to L4: BMD: 0.809 g/cm2. T-score: -2.2. Z-score: 0.0. Neck Left: BMD: 0.674 g/cm2. T-score: -1.6 . Z-score: 0.3. Right: BMD: 0.646 g/cm2. T-score: -1.8 . Z-score: -0.0. Total Left: BMD: 0.764 g/cm2. T-score: -1.5. Z-score: 0.1. Right: BMD: 0.742 g/cm2. T-score: -1.6. Z-score: -0.1. IMPRESSION: Osteopenia. COMPARISON: Compared with scan of 10/07/2022, the bone mineral density has decreased by 2.5 percent at the spine and decreased by 2.2 percent at the hip. FRAX 10-year Fracture Risk Major Osteoporotic Fracture: 11 percent Hip Fracture: 2.0 percent Reported Risk Factors: [place] () Neck BMD=0.646, BMI=25.1 Yong Jain M.D. Diagnostic Radiologist [email or web address] DW/Dictated by: Yong Jain MD @ 10/27/2024 9:13:00 AM (Electronically Signed)
== END 2024-10-26 13:17 | disposition home or self-care (01) ==
LOC: RAD 13:18
PROVIDERS: PCP Family Medicine; Visit Provider Internal Medicine Hematology & Oncology
DX: N95.9 Unspecified menopausal and perimenopausal disorder (principal); M85.89 Other specified disorders of bone density and structure, multiple sites
CPT/HCPCS: 77080

== ENCOUNTER 2024-11-02 10:13 | Outpatient (RCR) | payer MEDICARE, BC, SELFPAY | END 2025-05-01 23:59 | disposition home or self-care (01) | LOC: CCIC 10:13 | PROVIDERS: PCP Family Medicine; Visit Provider Physician Assistant | DX: C50.912 Malignant neoplasm of unspecified site of left female breast (principal); Z17.0 Estrogen receptor positive status [ER+]; M85.80 Other specified disorders of bone density and structure, unspecified site; Z79.811 Long term (current) use of aromatase inhibitors | CPT/HCPCS: 99214; G0463 ==